=== PATIENT | male | born 2000 | race Caucasian/White ===

== ENCOUNTER 2025-01-09 07:34 | Outpatient (CLI) | payer OTHER, SELFPAY ==
[2025-01-09 08:36] LABS: PCR FLU A Negative PCR FLU A (Negative); PCR FLU B Negative PCR FLU B (Negative); SARS PCR* Negative SARS-CoV-2 (Negative)
== END 2025-01-09 07:35 | disposition home or self-care (01) ==
LOC: FRMREF 07:35
PROVIDERS: Visit Provider Physician Assistant Medical
DX: R05.9 Cough, unspecified (principal)
CPT/HCPCS: 87636